=== PATIENT | male | born 1965 | race Caucasian/White ===

== ENCOUNTER 2017-01-30 08:19 | Emergency (ER) | payer BC ==
--- NOTE | 2017-01-30 08:40 | EDPHY ---
H & P Time Seen by Provider: 01/30/17 08:29 HPI/ROS: CHIEF COMPLAINT: Left pretibial laceration HISTORY OF PRESENT ILLNESS: 51-year-old male she states that 3 days ago he was trail running, tripped and impacted his left distal pretibial region against a rock. He cleaned it and went to work and then at lunchtime went to see his primary care provider [facility] and sutures were placed. He is complaining to pain to the pretibial region as well as soft tissue swelling distal to the injury. He arrives with his own pre-hospital crutches. He denies paresthesia. Denies sensory or motor deficit. Denies discoloration. PRIMARY CARE PROVIDER: Dr. Khai Bull PHYSICAL EXAM (Prior to examination, patient consented to physical exam, hands were washed and my usual and customary physical exam procedures followed) 1) GENERAL: Well-developed, well-nourished, alert and oriented. Appears to be in no acute distress. 2) HEAD: Normocephalic 3) HEENT: Pupils equal, round, reactive to light bilaterally. 4) LUNGS: Breathing comfortably. 5) MUSCULOSKELETAL: Left distal pretibial laceration with sutures in place, granulating appropriately with no signs of infection, no fetid odor, no lymphangitic streaking, no erythema, no dehiscence. Soft tissue swelling is present distal to the laceration. Compartments are soft. Dorsiflexion plantar flexion of the foot elicit no proximal pain. There is no crepitus. 6) SKIN: laceration with sutures in place 7) VASCULAR: DP,PT pulses and cap refill present and brisk. Normal color normal temperature distally. DIFFERENTIAL DIAGNOSIS: in no particular order including but not limited to fracture, sprain, compartment syndrome Xray of the Left tibia and fibula interpreted by myself: cortical chip fracture at location of laceration Smoking Status: Never smoked Constitutional: Initial Vital Signs Temperature (C) 36.9 C 01/30/17 08:22 Heart Rate 65 01/30/17 08:22 Respiratory Rate 17 01/30/17 08:22 Blood Pressure 127/82 H 01/30/17 08:22 O2 Sat (%) 96 01/30/17 08:22 O2 Delivery Mode Room Air Allergies/Adverse Reactions: No Known Allergies Allergy (Unverified 07/31/14 19:12) Home Medications: Medication Instructions Recorded Calcium 07/31/14 Cephalexin [Keflex] 500 mg PO QID 7 Days 01/30/17 MDM/Departure - MDM Procedures: Procedure: Splint A Porfirio boot splint was applied by ER physics technician. After application of the splint I returned and re-examined the patient. The splint was adequately immobilizing the joint and distal to the splint the patient's circulation and sensation were intact. Patient shows no signs of compartment syndrome. Was given orthopedic precautions. ED Course/Re-evaluation: This patient's laceration is granulating appropriately with no signs of infection. He is noted to have a cortical chip fracture in location of his laceration. Discussed case with Dr. Adalberto Ball in the ER. He will be started on Keflex. He was concerned about soft tissue swelling distal to the laceration which I think is more than likely secondary to dependent edema. I have recommended elevation as much as possible. We specifically discussed compartment syndrome. I think that this is less than likely in this patient at this time as he has soft compartments, he is neurovascularly intact, brisk pulses, normal color, normal temperature, pain is not out of proportion to his injury, no pain with dorsiflexion or plantar flexion. I do not think that antibiotics are indicated. Not think that emergent orthopedic consultation is indicated. X-ray was performed showing no osseous injury. - Depart Disposition: Home, Routine, Self-Care Clinical Impression: Tibia fracture Qualifiers: Encounter type: initial encounter Tibia location: distal Fracture type: open Open fracture type: open type I or II Fracture morphology: pilon Fracture alignment: nondisplaced Laterality: left Qualified Code(s): S82.875B - Nondisplaced pilon fracture of left tibia, initial encounter for open fracture type I or II Condition: Good Instructions: Leg Fracture (ED) Additional Instructions: Return to the ER immediately if you experience discoloration, have worsening pain, numbness, tingling, or any other symptoms that concern you. If you received x-rays in the emergency department today, be advised, that ligamentous , tendon, muscular, and other non-bony injury cannot be fully ruled out. Try to keep your affected extremity elevated above the level of your chest, and keep cold packs on the affected area Prescriptions: Cephalexin [Keflex] 500 mg PO QID 7 Days Referrals: Saman Guadarrama MD [Medical Doctor] - 02/02/17 (Dr. Saman Guadarrama is an orthopedic surgeon at [facility])
[2017-01-30] MEDS ORDERED: CEPHALEXIN 500 MG CAP PO ONE (09:06)
[2017-01-30 09:21] VITALS: BP 123/75; PULSE 75; RESP 16; TEMP 98.4; O2SAT 94
== END 2017-01-30 09:21 | disposition home or self-care (01) ==
DX: S82.875 Nondisplaced pilon fracture of left tibia (principal); W01.198A Fall on same level from slipping, tripping and stumbling with subsequent striking against other object, initial encounter; Y99.8 Other external cause status; Y93.89 Activity, other specified

== ENCOUNTER → 2018-12-05 | Outpatient (CLI) | payer BC | LOC: BMCIMAGING 10:26 | PROVIDERS: ATTEND Internal Medicine | DX: S62.644A Nondisplaced fracture of proximal phalanx of right ring finger, initial encounter for closed fracture (principal) ==